=== PATIENT | female | born 1980 | race Caucasian/White ===

== ENCOUNTER 2016-10-20 16:16 | Emergency (ER) | payer OTHER ==
[~2016-10-20] VITALS: Ht 177.8 cm; Wt 72.6 kg
--- NOTE | ~2016-10-20 | CR243 ---
[facility]. [facility] A Service [facility] RADIOLOGY TEXT RESULTS PATIENT: HILARIO NYE LOCATION: SED : 78 UNIT #: [id number] AGE: [address]: NATHANIEL MORALEZ SEX: F ORDER DR: [id number] [place] [id number] E MR#: [id number] Acc #: [id number] NAME: HILARIO NYE : 1980 SEX: F STUDY DATE/TIME: 10/20/2016 19:10 UNIT: SED ROOM: STUDY DESCRIPTION: CR Thoracic Spine 3 Views Attending Physician: Nathaniel Moralez R.N. Ordering Physician: Nathaniel Moralez R.N. Primary Care Physician: Alfredo Holcomb M.D. MEDICAL IMAGING REPORT This report is preliminary unless electronic signature is present. EXAM Thoracic spine series dated 10/20/2016 COMPARISON Thoracic spine series dated 08/01/2012. HISTORY Pain in the mid back since yesterday, post injury. FINDINGS 3 views of the thoracic spine were obtained. The dorsal segment shows normal mineralization and a satisfactory anatomical dorsal kyphosis. All body heights, interspaces, and posterior elements are normal anatomically without any indication of malignancy, trauma, unusual paraspinal soft tissue density mass, or congenital defect. IMPRESSION Normal thoracic spine. Dictated by... Marie Neumann M.D. THIS IS AN ELECTRONICALLY VERIFIED REPORT Marie Neumann M.D. at 10/21/2016 7:08 PM CPR/aa TD: 10/21/2016 08:43 JOB #: [id number] MEDICAL IMAGING REPORT [facility]. [facility] A [facility] ER RADIOLOGY TEXT RESULTS PATIENT: HILARIO NYE LOCATION: SED : 78 UNIT #: [id number] AGE: [address]: NATHANIEL MORALEZ SEX: F ORDER DR: Page 1 of 1
[~2016-10-20 16:16] MED LIST: ACID REFLUX MED; ALBUTEROL17 GM INH; BIRTH CONTROL PILL; DICYCLOMINE HCL20 MG PO; FLAGYL PO; GILDESS1 EAC1 PO; LANSOPRAZOLE30 M2 PO; LEVAQUIN PO; LOMOTIL TABLET1 TAB PO; MEDROL4 MG/DOSE- PO; MOTRIN600 MG PO; NO MEDICATIONS; OMEPRAZOLE20 M2 PO; PAXIL PO; PHENERGAN25 M1 PO; ROBAXIN500 MG PO; TAMIFLU75 M1 PO; TYLENOL #3 PO; VICODIN PO; VISTARIL PO; VOLTAREN50 MG PO; VOLTAREN75 MG PO; ZOFRANODT PO; [UNRECOGNIZED DRUG - OTHER]
[2016-10-20 17:55] LABS: URINE SOURCE CLEAN CATCH
[2016-10-20 17:57] LABS: URINE APPEARANCE CLEAR; URINE BILIRUBIN NEG (NEG); URINE BLOOD TRACE-LYSED (NEG); URINE COLOR YELLOW; URINE GLUCOSE NEG (NORM); URINE KETONE NEG (NEG); URINE LEUKOCYTE ESTERASE NEG (NEG); URINE NITRATE NEG (NEG); URINE PROTEIN NEG (NEG); URINE UROBILINOGEN 0.2 MG/DL (NORM)
[2016-10-20 18:07] LABS: MICRO INDICATED? YES
[2016-10-20 18:15] LABS: CULTURE INDICATED? NO; URINE BACTERIA NEG (NEG); URINE MUCUS PRESENT; URINE SQUAMOUS EPITHELIAL CELL MODERATE /[HPF]; URINE WBC 0-2 /[HPF] (0-5)
== END 2016-10-20 19:52 | disposition home or self-care (01) ==
LOC: SED 16:16
PROVIDERS: Nurse Practitioner
DX: S23.3XXA Sprain of ligaments of thoracic spine, initial encounter (principal); F41.8 Other specified anxiety disorders; F17.210 Nicotine dependence, cigarettes, uncomplicated; Y93.72 Activity, wrestling; Y92.009 Unspecified place in unspecified non-institutional (private) residence as the place of occurrence of the external cause
CPT/HCPCS: 72072; 81003; 84703; 96372; 99285; J1885